=== PATIENT | male | born 1955 | race Caucasian/White ===

== ENCOUNTER → 2017-05-08 06:46 | Outpatient (CLI) | payer OTHER, SELFPAY ==
--- NOTE | 2017-05-09 08:40 | STRESSREP ---
Stress Test Report Exercise myocardial perfusion stress test. 62-year-old man with a history of dilated cardiomyopathy. Medications Norvasc Toprol Glucophage Prinivil Stress Protocol: Resting EKG demonstrates normal sinus rhythm with a rate of 76 bpm. Resting blood pressure is 130/88 mmHg. She and exercised according to the Zaid protocol for total duration of 5 minutes and 12 seconds. The maximum heart rate attained was 157 bpm which was 98% of the maximum predicted heart rate. The maximum workload attained was 7 metabolic equivalents. At rest there were no ST or T-wave changes noted suggest ischemia. Occasional premature ventricular complexes were noted test was terminated due to leg fatigue. Myocardial perfusion protocol 14.6 mCi of technetium 99m sestamibi was injected at rest. Patient then exercised for 5 minutes and 12 seconds attaining a maximum workload of 7 metabolic equivalents. And 98% of the maximum predicted heart rate. At peak exercise 44.9 mCi of technetium 99m sestamibi was injected. Stress and rest images were reconstructed and compared in the short axis vertical long horizontal long axis. Gated images were also obtained. Perfusion SPECT analysis. Of the stress images demonstrate normal perfusion in all areas of the myocardium. The resting images similarly demonstrate normal perfusion in all areas of the myocardium. No areas of reversibility are noted suggest ischemia. No previous infarct is noted. Gated SPECT analysis. Gated ejection fraction is 53%. Conclusion: Normal exercise myocardial perfusion stress test at a moderate workload. Preserved ejection fraction.
== END ==
PROVIDERS: Family Provider Family Medicine; PCP Family Medicine; Visit Provider Internal Medicine Cardiovascular Disease
DX: I42.0 Dilated cardiomyopathy (principal)
CPT/HCPCS: 78452; 93017; A9500; A4216

== ENCOUNTER → 2019-08-27 14:51 | Outpatient (CLI) | payer OTHER, SELFPAY ==
[2019-07-27 12:43] VITALS: BMI 31.3
--- NOTE | 2019-08-27 14:57 | ECHOD_ITS ---
Reason For Study: DYSPNEA/SOB Procedure This was a 2D Doppler, Color Flow transthoracic echocardiogram. The exam was of adequate technical quality. Exam performed in department. Left Ventricle Moderately dilated left ventricle. Severe global left ventricular systolic dysfunction. The estimated ejection fraction is 25 %. No evidence for diastolic dysfunction. Right Ventricle Normal RV size. Normal systolic function. Atria The left atrium is mildly enlarged. Normal right atrium. No doppler evidence for ASD. Mitral Valve There is no mitral annular calcification. Normal mitral valve. Trivial mitral valve insufficiency. Tricuspid Valve Normal tricuspid valve. Trivial tricuspid valve insufficiency. Right ventricular systolic pressure estimated to be 24 mmHg. Aortic Valve Trisinus/trileaflet aortic valve. Normal aortic valve. Pulmonic Valve The pulmonic valve is not well visualized. Great Vessels Normal sized aortic root. Pericardium/Pleural No pericardial effusion. MMode/2D Measurements & Calculations LVIDd: 6.4 cm IVSd: 1.1 cm Ao root diam: 2.8 cm LVIDs: 5.1 cm LVPWd: 1.1 cm RVDd: 3.1 cm FS: 20.2 % LAV(MOD-bp): 52.0 ml LA A4 area: 17.1 cm2 LA dimension(2D): 4.0 cm LAV(MOD-bp) Indexed: 24.5 ml/m2 LAV(MOD-sp2): 54.4 ml LAV(MOD-sp4): 49.7 ml RA A4 area: 13.1 cm2 Time Measurements MV dec time: 0.20 sec Doppler Measurements & Calculations MV E max jethro: 56.6 cm/sec Lat Peak E' Jethro: 6.4 cm/sec Med Peak E' Jethro: 5.9 cm/sec MV A max jethro: 84.0 cm/sec E/E' lat: 8.9 E/E' med: 9.5 MV E/A: 0.67 Ao V2 max: 116.4 cm/sec LV V1 max: 66.7 cm/sec PA V2 max: 81.5 cm/sec Ao max P.4 mmHg LV V1 max P.8 mmHg Ao V2 mean: 86.7 cm/sec LV V1 mean P.1 mmHg Ao mean P.2 mmHg LV V1 mean: 50.4 cm/sec Ao V2 VTI: 21.0 cm LV V1 VTI: 13.3 cm TR max jethro: 229.5 cm/sec TR max P.1 mmHg Interpretation Summary Severe global left ventricular systolic dysfunction. The estimated ejection fraction is 25 %. The left atrium is mildly enlarged. Trivial mitral valve insufficiency. Trivial tricuspid valve insufficiency. Right ventricular systolic pressure estimated to be 24 mmHg. No evidence for diastolic dysfunction. Ordering Physician: Sourav Godinez Referring Physician: Yvette Warren Performed By: Dawn Yo, FIONA, RVT
== END ==
PROVIDERS: PCP Family Medicine; Referring Provider Internal Medicine Cardiovascular Disease; Visit Provider Internal Medicine Cardiovascular Disease
DX: R06.02 Shortness of breath (principal); R06.00 Dyspnea, unspecified; I42.0 Dilated cardiomyopathy; I25.10 Atherosclerotic heart disease of native coronary artery without angina pectoris; E78.2 Mixed hyperlipidemia; E11.9 Type 2 diabetes mellitus without complications; N18.1 Chronic kidney disease, stage 1; I12.9 Hypertensive chronic kidney disease with stage 1 through stage 4 chronic kidney disease, or unspecified chronic kidney disease
CPT/HCPCS: 93306

== ENCOUNTER → 2019-12-09 16:41 | Outpatient (CLI) | payer OTHER, SELFPAY ==
[2019-12-09 16:31] VITALS: BMI 31.1
[2019-12-09 17:25] LABS: Anion Gap 4 (5-15); BNP,B-Type NATRIURETIC PEPTIDE 33.8 pg/mL (0-100); BUN 20 mg/dL (7-18); BUN/Creat Ratio 14.6 RATIO (10-20); Calcium,Total 9.9 mg/dL (8.5-10.1); Chloride 104 mmol/L (98-107); Creatinine, Serum 1.37 mg/dL (0.70-1.30); EST Glomerular Filtration Rate 56 mL/min (>60); Est Glom Filt Rate - Afr Amer 68 mL/min (>60); Glucose 173 mg/dL (74-106); Potassium 3.9 mmol/L (3.5-5.1); Sodium Level 137 mmol/L (136-145)
== END ==
PROVIDERS: PCP Family Medicine; Referring Provider Nurse Practitioner Family; Visit Provider Nurse Practitioner Family
DX: I25.10 Atherosclerotic heart disease of native coronary artery without angina pectoris (principal); I42.0 Dilated cardiomyopathy; I12.9 Hypertensive chronic kidney disease with stage 1 through stage 4 chronic kidney disease, or unspecified chronic kidney disease; N18.1 Chronic kidney disease, stage 1; E11.9 Type 2 diabetes mellitus without complications; R06.00 Dyspnea, unspecified
CPT/HCPCS: 36415; 80048; 83880

== ENCOUNTER 2020-04-10 11:40 | Inpatient (IN) | payer OTHER, SELFPAY ==
[2019-12-09 16:31] VITALS: BMI 31.1
[2020-04-10] VITALS (10 sets, daily range): BP systolic 125–143; BP diastolic 82–88; PULSE 67–81; RESP 15–20; TEMP 27.2–36.8; O2SAT 93–97; BMI 32.7; BMI 30.2
--- NOTE | 2020-04-10 11:43 | NURSING ---
NO OLD EKGS
--- NOTE | 2020-04-10 11:50 | NURSING ---
NO OLD EKGS
--- NOTE | 2020-04-10 11:51 | ED.RN ---
PT POOR HISTORIAN CALL FOR INFO AND UPDATE, MAGDA WILSON [phone]
--- NOTE | 2020-04-10 11:56 | ED.RN ---
PT'S REPORTS IF HE HAS TO HAVE A HEART CATH DONE I ONLY WANT DR. JOSEPH TO DO IT
--- NOTE | 2020-04-10 12:14 | EKG12_ITS ---
Test Reason : Blood Pressure : / mmHG Vent. Rate : 071 BPM Atrial Rate : 071 BPM P-R Int : 142 ms QRS Dur : 116 ms QT Int : 424 ms P-R-T Axes : 047 006 083 degrees QTc Int : 460 ms Normal sinus rhythm Nonspecific ST and T wave abnormality Prolonged QT Abnormal ECG No previous ECGs available Confirmed by JAKE KENDRICK, ELAYNE ([id number]), make up editor JENA MOSCOSO ([id number]) on 04/13/2020 11:58:27 AM Referred By: MADHU Confirmed By:LYDIA JOSEPH MD
--- NOTE | 2020-04-10 12:15 | RAD_ITS ---
STUDY: X-RAY CHEST REASON FOR EXAM: Male, 65 years old. INTERMITTENT CHEST PAIN TECHNIQUE: Single AP portable view of the chest. COMPARISON: None. FINDINGS: The lungs are clear and expanded. There is no demonstrated pleural abnormality. Normal size heart. Normal mediastinum and corinne. Normal visualized pulmonary arteries. Normal visualized aortic arch and descending thoracic aorta. There are diffuse degenerative changes of the visualized thoracic spine. There is degenerative osteoarthritis of the bilateral shoulders. There is no demonstrated abnormality of the visualized soft tissue structures of the upper abdomen. RAD/Chest 1 View (Portable) IMPRESSION: Degenerative changes, as described above. No demonstrated acute cardiopulmonary process.. Electronically Signed: Kobi Blanco, at 13:20 EST Tel , Service support ,
[2020-04-10 12:22] LABS: Absolute Lymphocyte Count 1.51 X10^3/uL (0.83-4.51); Absolute Neutrophil Count 5.1 X10^3/uL (2.0-7.7); Basophil# 0.09 X10^3/uL; Basophil% 1.1 % (0-1); Eosinophil# 0.61 X10^3/uL; Eosinophils% 7.4 % (0-5); Hematocrit 48.5 % (40-54); Hemoglobin 16.2 g/dL (13.0-16.5); Lymphocyte # 1.51 X10^3/ul (4.0); Lymphocyte % 18.3 % (19-41); Mean Corp Hgb Conc 33.4 g/dL (32-36); Mean Corpuscular Hgb 31.3 pg (27.0-32.0); Mean Corpuscular Volume 93.6 fL (80-94); Mean Platelet Vol. 9.8 fl (6.2-12.0); Monocyte# 0.88 X10^3/uL; Monocyte% 10.7 % (0-10); NRBC Flagged by Analyzer 0 % (0-5); Neutrophil # 5.13 X10^3/uL (2.7-7.7); Neutrophil % 62.1 % (47-70); Platelet Count 394 K/mm3 (150-450); RBC Distribution Width CV 12.9 % (11.6-14.6); Red Blood Count 5.18 M/mm3 (4.6-6.2); White Blood Count 8.3 K/mm3 (4.4-11.0)
[2020-04-10 12:33] LABS: International Normalized Ratio 0.9
[2020-04-10 12:43] LABS: Anion Gap 7 (5-15); BUN 19 mg/dL (7-18); BUN/Creat Ratio 12.3 RATIO (10-20); Calcium,Total 9.6 mg/dL (8.5-10.1); Chloride 103 mmol/L (98-107); Creatinine, Serum 1.55 mg/dL (0.70-1.30); EST Glomerular Filtration Rate 48 mL/min (>60); Est Glom Filt Rate - Afr Amer 59 mL/min (>60); Estimated Creatinine Clearance 48.78 ml/min; Glucose 339 mg/dL (74-106); Sodium Level 137 mmol/L (136-145)
[2020-04-10 12:53] LABS: D-Dimer Quantitative (DVT/PE) 0.36 FEU/ug/m (0.27-0.49)
--- NOTE | 2020-04-10 13:07 | ED.DCSUM_ITS ---
History of Present Illness Chief Complaint: Chest Pain Informant: Patient Onset: Days - 4 days Timing: Intermittent Current Severity: Mild Maximum Severity: Moderate Narrative: Patient presents secondary to increased shortness of breath. Patient reports increased shortness of breath over the past 3 or 4 days. He states he occasionally will feel some slight heaviness on his chest. He does have a history of cardiomyopathy with ejection fraction at last check of 25%. On review of records it appears the patient's last heart cath was in 2011. He had a stress test in 2018. - Past Medical History (1) Sleep apnea Status: Chronic (2) Asthma Status: Chronic (3) Atherosclerotic heart disease of [place] coronary artery without angina pectoris Status: Chronic Comment: Mild disease LAD per cath 06/12/11 (4) CKD (chronic kidney disease) stage 1, GFR 90 ml/min or greater Status: Chronic (5) Dilated cardiomyopathy Status: Chronic (6) Essential hypertension Status: Chronic (7) Mixed hyperlipidemia Status: Chronic (8) Type 2 diabetes mellitus Status: Chronic Past Medical History - Allergies and Home Meds Allergies/Adverse Reactions: Allergies No Known Allergies Allergy (Verified 04/10/20 11:41) Prior records reviewed: Yes Lives: Spouse/ Significant Other Smoking Status: Former smoker - Family History Sibling Family History: Family History (Last Reviewed 12/09/19 @ 16:06 by Mejia Antony NP, [employer]CI[employer]-C) Father Myocardial infarction Hypertension CVA (cerebral vascular accident) Brother Myocardial infarction CVA (cerebral vascular accident) Mixed hyperlipidemia Family History: Reports: Heart Disease Review of Systems General: Denies: Chills, Fever Eyes: Denies: Visual changes - bilaterally ENT: Denies: Bilateral ear pain Cardiovascular: Reports: Chest pain Respiratory: Reports: Dyspnea. Denies: Cough Gastrointestinal: Denies: Abdominal pain, Nausea, Vomiting, Diarrhea Musculoskeletal: Denies: Extremity Pain Skin: Denies: Rash Hematologic: Denies: Easy bruising, Easy bleeding Allergy: Denies: Uticaria Physical Exam Vital Signs/Narrative: Vital Signs Temp Pulse Resp BP Pulse Ox 04/10/20 11:46 81 20 H 138/85 H 93 04/10/20 11:41 81 F L 81 17 138/85 H 93 Inital Vital Signs reviewed: Yes General: Well nourished, Well developed Head: Normocephalic ENT: Moist mucous membranes Neck: Supple Cardiovascular: Regular rate, Regular rhythm Respiratory: No distress, CTA bilaterally, Chest nontender Abdomen: Soft, Nontender Extremities: Nontender Skin: Normal color Neurological: Alert, Oriented x3 Psychological: Normal affect Diagnostic/Tx/Re-eval Chest X-Ray - ED: 1 View, Read by ED Physician, Chronic Changes Impressions Chest X-Ray 04/10/20 12:15 IMPRESSION: Degenerative changes, as described above. No demonstrated acute cardiopulmonary process.. Electronically Signed: Kobi Blanco, at 13:20 EST Tel , Service support , 04/10/20 12:15 Chest 1 View (Portable) [RAD] Stat 04/10/20 12:35 Mucosa - Nasopharyngeal SARS-CoV-2 Antigen (Rapid) - Final Laboratory Results 04/10/20 04/10/20 04/10/20 12:15 12:15 12:15 WBC 8.3 RBC 5.18 Hgb 16.2 Hct 48.5 MCV 93.6 MCH 31.3 MCHC 33.4 RDW Std Deviation 44.0 H RDW Coeff of Any 12.9 Plt Count 394 MPV 9.8 Immature Gran % (Auto) 0.400 Neut % (Auto) 62.1 Lymph % (Auto) 18.3 L [place] % (Auto) 10.7 H Eos % (Auto) 7.4 H Baso % (Auto) 1.1 H Absolute Neuts (auto) 5.1 Absolute Lymphs (auto) 1.51 Nucleated RBC % 0 PT 12.0 INR 0.9 D-Dimer Quant (PE/DVT) Sodium 137 Potassium 4.0 Chloride 103 Carbon Dioxide 27.0 Anion Gap 7 BUN 19 H Creatinine 1.55 H Estim Creat Clear Calc 48.78 Est GFR (MDRD) Af Amer 59 L Est GFR (MDRD) Non-Af 48 L BUN/Creatinine Ratio 12.3 Glucose 339 H Calcium 9.6 Troponin I 0.789 H* 04/10/20 12:15 WBC RBC Hgb Hct MCV MCH MCHC RDW Std Deviation RDW Coeff of Any Plt Count MPV Immature Gran % (Auto) Neut % (Auto) Lymph % (Auto) [place] % (Auto) Eos % (Auto) Baso % (Auto) Absolute Neuts (auto) Absolute Lymphs (auto) Nucleated RBC % PT INR D-Dimer Quant (PE/DVT) 0.36 Sodium Potassium Chloride Carbon Dioxide Anion Gap BUN Creatinine Estim Creat Clear Calc Est GFR (MDRD) Af Amer Est GFR (MDRD) Non-Af BUN/Creatinine Ratio Glucose Calcium Troponin I - EKG Initial EKG Interpretation: Sinus Rhythm - Sinus at 79. He may have 1/[address] depression in the lateral precordial leads. No prior studies available for comparison. - Medical Decision Making Patient was given aspirin on arrival. Blood work does return with a troponin elevated at 0.789. BNP is pending at this time but his chest x-ray does not appear wet. I did speak Dr. Cedeno, on-call for cardiology. He requested the patient be placed on a heparin drip. This will be started and I will speak with hospitalist regarding admission for NSTEMI. - Critical Care Time Critical care time (excluding procedures): 30-74 minutes ED Disposition - Plan for ED Patient: Disposition: Acute Care Hospital [facility] Diagnosis: NSTEMI (non-ST elevated myocardial infarction)
--- NOTE | 2020-04-10 13:07 | NURSING ---
Dr. Barajas made aware of critical trop
[2020-04-10] MEDS: Aspirin 81 MG TAB.CHEW 243 MG PO (13:24)
[2020-04-10] MEDS: HEPARIN/D5w 25,000 UNITS 25,000 UNITS/250 ML IV.SOLN. 14 UNITS IV (14:10)
[2020-04-10] MEDS: Heparin Injection (Vial) 5,000 UNIT/ML VIAL 7500 UNIT IV (14:10)
[2020-04-10 14:14] LABS: Partial Thromboplast Time 28.2 Seconds (24.1-36.2)
--- NOTE | 2020-04-10 14:40 | EKG12_ITS ---
Test Reason : SOB CP Blood Pressure : / mmHG Vent. Rate : 079 BPM Atrial Rate : 079 BPM P-R Int : 142 ms QRS Dur : 110 ms QT Int : 400 ms P-R-T Axes : 048 008 090 degrees QTc Int : 458 ms Normal sinus rhythm Nonspecific ST and T wave abnormality Abnormal ECG Confirmed by JAKE KENDRICK, ELAYNE ([id number]), photography editor JENA MOSCOSO ([id number]) on 04/17/2020 9:11:33 AM Referred By: LENORE Confirmed By:LYDIA JOSEPH MD
--- NOTE | 2020-04-10 14:55 | PCM.HP.STD ---
Problem List (1) BPH (benign prostatic hyperplasia) Status: Chronic (2) NSTEMI (non-ST elevated myocardial infarction) Status: Acute (3) Dilated cardiomyopathy Status: Chronic (4) Atherosclerotic heart disease of [place] coronary artery without angina pectoris Status: Chronic Qualifiers: [place] vs. transplanted heart: [place] heart Qualified Code(s): I25.10 - Atherosclerotic heart disease of [place] coronary artery without angina pectoris Comment: Mild disease LAD per cath 06/12/11 (5) Asthma Status: Chronic (6) Sleep apnea Status: Chronic (7) Cardiomyopathy Status: Acute Qualifiers: Cardiomyopathy type: dilated Qualified Code(s): I42.0 - Dilated cardiomyopathy (8) CKD (chronic kidney disease) stage 1, GFR 90 ml/min or greater Status: Chronic (9) Type 2 diabetes mellitus Status: Chronic (10) Essential hypertension Status: Chronic (11) Mixed hyperlipidemia Status: Chronic (12) ROLAND (acute kidney injury) Status: Acute History of Present Illness Date of Admission: 04/10/20 Mr Sanders is a 65 year old M with a PMH of a NICM, HTN, HPL, DM-2, CKD stage 1-2, Asthma, RON, BPH, and obesity who presented to the ED on 04/10/2020 with worsening SOB and chest squeezing. He states that he has noticed his worsening SOB over the last week or so and this is worse with exertion and better with rest. He states that he was doing a lot of stair climbing over the weekend with the taking down of [place] decorations and noted that his SOB was more severe and that he had some chest squeezing'. He had also been noting some mid back pain that he attributed to his chronic back issues. He experienced on diaphoresis or nausea or vomiting in conjunction with his sx. He states that he had a LHC in about 2011 when he was diagnosed with a cardiomyopathy and there were no blockages at that time and his CM was attibuted to a viral infection. He did have a stress test in 05/12/2017 that showed normal exercise perfusion with a moderate workload and and EF of 53%. He states that his EF had been 45% when diagnosed with viral myocarditis. He had an ECHO here in 08/2019 that showed and EF of 25% (severe global dysfunction) with mild LAE and was seen by Dr. Godinez's SENIOR GRANT WRITER in 11/2019. He does have a family h/o cardiac issues and the pt deferred ICD placement at that time. Past Medical History Past Medical History (Chronic Problems): Chronic Problems (Last Reviewed 12/09/19 @ 16:06 by Mejia Antony NP, SENIOR [employer] WRITER-C) BPH (benign prostatic hyperplasia) (Chronic) Dilated cardiomyopathy (Chronic) Atherosclerotic heart disease of [place] coronary artery without angina pectoris (Chronic) Mild disease LAD per cath 06/12/11 Asthma (Chronic) Sleep apnea (Chronic) CKD (chronic kidney disease) stage 1, GFR 90 ml/min or greater (Chronic) Type 2 diabetes mellitus (Chronic) Essential hypertension (Chronic) Mixed hyperlipidemia (Chronic) Medical History: Medical History (Last Reviewed 04/10/20 @ 15:[address] Milka Gross, DO) Dilated cardiomyopathy (Chronic) I42.0 Atherosclerotic heart disease of [place] coronary artery without angina pectoris (Chronic) I25.10 Mild disease LAD per cath 06/12/11 Asthma (Chronic) J45.909 Sleep apnea (Chronic) G47.30 Cardiomyopathy (Acute) I42.9 CKD (chronic kidney disease) stage 1, GFR 90 ml/min or greater (Chronic) N18.1 Type 2 diabetes mellitus (Chronic) E11.9 Essential hypertension (Chronic) I10 Mixed hyperlipidemia (Chronic) E78.2 Allergies No Known Allergies Allergy (Verified 04/10/20 11:41) Home Medications: Ambulatory Orders Medication Instructions Recorded Albuterol Inhaler [Ventolin Hfa] 1 - 2 puff INHALATION Q4H PRN PRN 05/24/13 Simvastatin [Zocor] 40 mg PO QHS 05/24/13 amlodipine 10 mg tablet 10 mg PO DAILY 07/26/19 budesonide-formoterol HFA 160 2 puff INHALATION BID 07/26/19 mcg-4.5 mcg/actuation aerosol inhaler dulaglutide 0.75 mg/0.5 mL 0.75 mg SC QWEEK 07/26/19 subcutaneous pen injector glipizide 10 mg tablet, extended 10 mg PO DAILY 07/26/19 release 24 hr lisinopril 40 mg tablet 40 mg PO DAILY 07/26/19 metformin 500 mg tablet 1,000 mg PO DAILY tab 07/26/19 sitagliptin 100 mg tablet 100 mg PO DAILY 07/26/19 cholecalciferol (vitamin D3) 125 125 mcg PO DAILY 09/10/19 mcg (5,000 unit) capsule aspirin 81 mg chewable tablet 81 mg PO DAILY 12/09/19 metoprolol succinate 100 mg 200 mg PO DAILY tab 12/10/19 tablet,extended release 24 hr Hydrochlorothiazide [Hctz] 25 mg PO DAILY 04/10/20 Montelukast Sodium [Singulair] 10 mg PO DAILY 04/10/20 Mv-Min/Folic/Vit K/Lut/Dhsx808 1 tab PO DAILY 04/10/20 [Alive Women's 50 Plus Tablet] Naproxen Sodium [Aleve] 220 mg PO DAILY PRN PRN 04/10/20 Surgical History: Surgical History (Last Reviewed 04/10/20 @ 15:[address] Milka Gross, DO) History of cholecystectomy Z90.49 History of hernia repair Z98.890, Z87.19 History of laminectomy Z98.890 Cervical History of left heart catheterization (LHC) Onset Date: ~06/12/11 Z98.890 Mild disease LAD per cath 06/12/11 History of rotator cuff surgery Z98.890 History of tonsillectomy Z90.89 Surgical History: noncontributory Psychiatric History: No pertinent psych hx Lives: Spouse/ Significant Other Smoking Status: Former smoker - quit 1989 Tobacco Use: Non-smoker Alcohol: Rare Drugs: None - *Family History Sibling Family History: Family History (Last Reviewed 12/09/19 @ 16:06 by Mejia Antony SENIOR GRANT WRITER, SENIOR GRANT WRITER-C) Father Myocardial infarction Hypertension CVA (cerebral vascular accident) Brother Myocardial infarction CVA (cerebral vascular accident) Mixed hyperlipidemia History Items: Heart Disease Review of Systems Constitutional: Reports: Fatigue. Denies: Anorexia, Chills, Fever, Night Sweats, Malaise, Weakness, Weight Change Eyes: Denies: Blurred vision, Double vision, Drainage, Eyelid Inflammation, Pain, Redness, Vision Change HEENT: Denies: Difficulty Hearing, Difficulty Swallowing, Head Aches, Nasal Congestion, Post Nasal Drip, Sinus Congestion, Sinus Drainage, Sore Throat, Visual Changes Cardiovascular: Reports: Chest Pressure, Chest Tightness. Denies: Chest Pain, Claudication, Edema, Heaviness, Light Headedness, Orthopnea, Palpitations, Paroxysmal Noc. Dyspnea, Syncope Respiratory: Reports: Shortness of Breath, Shortness of breath upon exertion. Denies: Cough, Hemoptysis, Pleuritic Pain, Shortness of breath at rest, Sputum production, Wheezing Gastrointestinal: Denies: Abdominal Pain, Constipation, Diarrhea, Dyspepsia, Hematemesis, Hematochezia, Nausea, Melena, Vomiting Genitourinary: Reports: Frequency, Hesitancy, Nocturia, Retention. Denies: Dysuria, Hematuria, Incontinence, Urgency Musculoskeletal: Reports: Back Pain. Denies: Joint Pain, Joint stiffness, Joint swelling, Joint Tenderness, Neck Pain, Shoulder Pain Skin: Denies: Dryness, Jaundice, Lesions, Pruritis, Rash, Skin Changes, Wounds Neurological: Denies: Balance problems, Blurred vision, Double vision, Change in Speech, Slurred speech, Confusion, Difficulty swallowing, Focal weakness, Headaches, Incoordination, Numbness, Tingling, Tremor, Seizures Psychiatric: Denies: Anxiety, Depression Endocrine: Denies: Change in Body Habitus, Polyuria Hematologic/ Lymphatic: Denies: Adenopathy, Anemia, Easy Bruising, Easy Bleeding, Petechiae, Purpura VTE Information - Inpt Only VTE Present on Admission: No VTE Mechan Device Prophylaxis: None VTE Pharm Prophylaxis ordered?: Yes Patient Problems: Active and Suspected Problems (Last Reviewed 12/09/19 @ 16:06 by Mejia Antony SENIOR GRANT WRITER, SENIOR GRANT WRITER-C) NSTEMI (non-ST elevated myocardial infarction) (Acute) - Physical Exam Vitals/I&O's: Vital Signs Temp Pulse Resp BP Pulse Ox 97.0 F L 72 15 125/83 H 96 04/10/20 14:15 04/10/20 14:15 04/10/20 14:15 04/10/20 14:15 04/10/20 14:15 Oxygen Delivery Method Room Air Weight: 100.5 kg Body Mass Index (BMI) 32.7 General: Alert, Oriented x3, Cooperative, No apparent distress, Well developed, Well nourished, - - upper middle aged WM lying in bed, nsg at bedside, pt appears comfortable HEENT: Atraumatic, PERRLA, EOMI, Normocephalic, EAC Clear Oral: Moist Mucosa, No Gingival or Mucosal Lesions/ Ulcerations, - - dentures in place Neck: Supple, No JVD, Negative Carotid Bruits, Negative Hepatojugular Reflux, No Nodes, No Nuchal Rigidity, Trachea Midline, Thyroid Normal Size and Texture Lungs: Clear to auscultation, Normal air movement, No rhonchi, No wheeze, No rales Cardiovascular: Regular rate, Regular Rhythm, Normal S1, Normal S2, No murmurs, No Ectopic Activity, No rub noted, No Gallop Abdomen: Bowel Sounds Present, Soft, Non Tender, Non-Distended, No Hepato-splenomegaly, Obese, No hernias noted Extremities: No clubbing, No cyanosis, Capillary Refill Less than 3 Seconds, Peripheral Pulses Normal Skin: No rashes, No breakdown Musculoskeletal: No Tenderness to Palpation of Joints or Extremities, No Muscle Wasting Lymphatic: No Cervical, Supraclavicular, or Inguinal Adenopathy Neurological: Cranial nerves II-XII grossly intact, Deep Tendon Reflexes 2+/4 and Symmetrical, Neuro grossly intact, Motor Exam 5/5 strength throughout, Muscle tone normal, Coordination normal Psych/Mental Status: Normal Affect, Appropriate Microbiology Past 72 Hours 04/10/20 12:35 Mucosa - Nasopharyngeal SARS-CoV-2 Antigen (Rapid) - Final Laboratory Results 04/10/20 12:15: WBC 8.3, RBC 5.18, Hgb 16.2, Hct 48.5, MCV 93.6, MCH 31.3, MCHC 33.4, RDW Std Deviation 44.0 H, RDW Coeff of Any 12.9, Plt Count 394, MPV 9.8, Immature Gran % (Auto) 0.400, Neut % (Auto) 62.1, Lymph % (Auto) 18.3 L, [place] % (Auto) 10.7 H, Eos % (Auto) 7.4 H, Baso % (Auto) 1.1 H, Absolute Neuts (auto) 5.1, Absolute Lymphs (auto) 1.51, Nucleated RBC % 0 04/10/20 12:15: PT 12.0, INR 0.9 04/10/20 12:15: Sodium 137, Potassium 4.0, Chloride 103, Carbon Dioxide 27.0, Anion Gap 7, BUN 19 H, Creatinine 1.55 H, Estim Creat Clear Calc 48.78, Est GFR (MDRD) Af Amer 59 L, Est GFR (MDRD) Non-Af 48 L, BUN/Creatinine Ratio 12.3, Glucose 339 H, Calcium 9.6, Troponin I 0.789 H* 04/10/20 12:15: D-Dimer Quant (PE/DVT) 0.36 04/10/20 12:15: B-Natriuretic Peptide Pending 04/10/20 12:15: APTT 28.2 Current Medications Acetaminophen (Acetaminophen 325 Mg Tablet) 650 mg PO Q6H PRN PRN PRN Reason: Pain Score 1-10/Temp > 100.7 F Al Hydroxide/Mg Hydroxide (Mag Hydrox/Al Hydrox/Simeth 30 Ml Udc) 30 ml PO Q6H PRN PRN PRN Reason: Gastric Burning Albuterol Sulfate (Albuterol 2.5 Mg/3 Ml Vial.Neb.) 2.5 mg INHALATION Q2H PRN PRN PRN Reason: SOB/Wheezing Amlodipine Besylate (Amlodipine 10 Mg Tablet) 10 mg PO DAILY [facility] Aspirin (Aspirin E.C. 81 Mg Tablet) 81 mg PO DAILY@0800 [facility] Cyclobenzaprine HCl (Cyclobenzaprine Hcl 10 Mg Tablet) 10 mg PO TID PRN PRN Reason: muscle spasm Docusate Sodium (Docusate Sodium 100 Mg Capsule) 100 mg PO BID PRN PRN PRN Reason: Constipation Heparin Sodium (Porcine) (Heparin Injection (Vial) 5,000 Unit/Ml Vial) 0 unit IV UD PRN; Protocol PRN Reason: dose adjustment Hydralazine HCl (Hydralazine 20 Mg/Ml Vial) 10 mg IV Q6H PRN PRN PRN Reason: Sbp Greater Than 160 Heparin Sodium/Dextrose () 25,000 units in 250 mls @ 14 mls/hr IV .[id number] [facility]; Protocol Last Admin: 04/10/20 14:10 Dose: 1,400 units/hr, 14 mls/hr Documented by: Sodium Chloride () 1,000 mls @ 70 mls/hr IV .[id number] [facility] Insulin Glargine (Insulin Glargine 100 Units/Ml Pen) 20 units SC QHS [facility] Insulin Human Lispro (Insulin Lispro 100 Unit/Ml Insuln.Pen) 8 unit SC Q6 [facility] Insulin Human Lispro (Insulin Lispro 100 Unit/Ml Insuln.Pen) 0 unit SC TIDAC [facility]; Protocol Lisinopril (Lisinopril 40 Mg Tablet) 40 mg PO DAILY [facility] Melatonin (Melatonin 3 Mg Tablet) 3 mg PO QHS PRN PRN PRN Reason: INSOMNIA Metoprolol Succinate (Metoprolol(Xl)Succ 100 Mg Tablet) 200 mg PO DAILY [facility] Montelukast Sodium (Montelukast 10 Mg Tablet) 10 mg PO DAILY [facility] Morphine Sulfate (Morphine 2 Mg/Ml Syringe) 2 mg IV Q3H PRN PRN PRN Reason: Pain Score 6-10 Nitroglycerin (Nitroglycerin (Inpatient Use) 0.4 Mg Tab.Subl) 0.4 mg SUBLINGUAL Q5M PRN PRN Reason: CARDIAC/CHEST PAIN Non-Formulary Medication (Budesonide/Formoterol Fumarate [Budesonide-Formoterol 160-4.5]) 2 puff INHALATION BID [facility] Non-Formulary Medication (Simvastatin) 40 mg PO QHS [facility] Ondansetron HCl (Ondansetron 4 Mg/2 Ml Vial) 4 mg IV Q8H PRN PRN PRN Reason: NAUSEA/VOMITING Assessment/Plan All Active Problems (Last Reviewed 12/09/19 @ 16:06 by Mejia Antony SENIOR GRANT WRITER, SENIOR GRANT WRITER-C) NSTEMI (non-ST elevated myocardial infarction) (Acute) ROLAND (acute kidney injury) (Acute) Cardiomyopathy (Acute) NSTEMI -ED d/w Dr. Cedeno and he wanted pt placed on heparin ggt -order placed -ASA given -will await cards for Plavix load if desired -continue BB, statin, ACEI -check A1c, check lipids -NPO after MN for potential LHC -IVF ordered with elevated sCr -prn nitro/morphine -Cardiology is consulted ROLAND on CKD stage 2 -baseline is unknown but higher than last assessment today -gentle hydration with probable LHC tomorrow (LR at 70 cc/hr) -watch volume status closely with HFrEF HFrEF 2/2 NICM-compensated -EF was 25% on ECHO from 08/2019 -had neg stress test 2017 (EF was 53% on that) and neg LHC in 2011 when NICM was diagonosed -continue BB/ACEI -suspect LHC tomorrow -daily wgts and I&O DM-2 uncontrolled -Unclear what A1c is most recently -check in am -hold home meds (trulicity {last dose yesterday}, metformin, glipizide ER, januvia) -Lantus 20 u at HS, Log 8 u with meals -SSI -BGT AC and HS HTN/HPL -check lipids -continue Norvasc, lisinopril, metoprolol -hold HCTZ for now -prn hydralazine -monitor pressures Asthma -continue home meds BPH -start Flomax DVT Prophylaxis -heparin ggt Code status Full Inpatient E&M: 37005 Init Hosp L3
[2020-04-10] MEDS: 0.9% Normal Saline 1,000 ML 70 ML IV (15:35)
[2020-04-10 16:12] LABS: BNP,B-Type NATRIURETIC PEPTIDE 75.7 pg/mL (0-100)
[2020-04-10 17:40] LABS: Bedside Glucose 133 mg/dL (70-110)
[2020-04-10] MEDS: Insulin Lispro 100 UNIT/ML INSULN.PEN 8 UNIT SC (18:14)
[2020-04-10 18:21] LABS: Bedside Glucose 212 mg/dL (70-110)
[2020-04-10] MEDS: Albuterol 2.5 MG/3 ML VIAL.NEB. INHALATION (20:41)
[2020-04-10] MEDS: Budesonide Respules 0.5 MG/2 ML AMPUL.NEB. INHALATION (20:41)
[2020-04-10 21:18] LABS: Partial Thromboplast Time 114.8 Seconds (24.1-36.2)
[2020-04-10] MEDS: Atorvastatin Calcium 20 MG Tablet PO (21:26)
[2020-04-10 21:40] LABS: Bedside Glucose 163 mg/dL (70-110)
[2020-04-11] VITALS (16 sets, daily range): BP systolic 123–150; BP diastolic 79–94; PULSE 66–80; RESP 16–20; TEMP 36.2–36.6; O2SAT 92–95
[2020-04-11 00:01] LABS: Bedside Glucose 127 mg/dL (70-110)
[2020-04-11 05:07] LABS: Absolute Lymphocyte Count 3.54 X10^3/uL (0.83-4.51); Absolute Neutrophil Count 4.9 X10^3/uL (2.0-7.7); Basophil# 0.08 X10^3/uL; Basophil% 0.8 % (0-1); Eosinophils% 6.7 % (0-5); Hematocrit 42.7 % (40-54); Hemoglobin 14.3 g/dL (13.0-16.5); Lymphocyte # 3.54 X10^3/ul (4.0); Lymphocyte % 33.8 % (19-41); Mean Corp Hgb Conc 33.5 g/dL (32-36); Mean Corpuscular Volume 92.6 fL (80-94); Mean Platelet Vol. 9.5 fl (6.2-12.0); Monocyte# 1.22 X10^3/uL; Monocyte% 11.7 % (0-10); NRBC Flagged by Analyzer 0 % (0-5); Neutrophil # 4.88 X10^3/uL (2.7-7.7); Neutrophil % 46.6 % (47-70); Platelet Count 314 K/mm3 (150-450); RBC Distribution Width SD 43.8 fl (35.1-43.9); Red Blood Count 4.61 M/mm3 (4.6-6.2); White Blood Count 10.5 K/mm3 (4.4-11.0)
[2020-04-11] MEDS: 0.9% Normal Saline 1,000 ML 70 ML IV (05:15)
[2020-04-11 05:17] LABS: Partial Thromboplast Time 48.8 Seconds (24.1-36.2)
[2020-04-11] MEDS: Heparin Injection (Vial) 5,000 UNIT/ML VIAL IV (05:36)
[2020-04-11 05:49] LABS: ALB/GLOB Ratio 0.8 RATIO (0.9-2.4); AST(SGOT) 22 U/L (15-37); Alanine Aminotransfer ALT/SGPT 33 U/L (16-61); Alkaline Phosphatase 58 U/L (45-117); Anion Gap 3 (5-15); BUN 15 mg/dL (7-18); BUN/Creat Ratio 11.6 RATIO (10-20); Calcium,Total 9.1 mg/dL (8.5-10.1); Chloride 105 mmol/L (98-107); Cholesterol 183 mg/dL (200); Creatinine, Serum 1.29 mg/dL (0.70-1.30); EST Glomerular Filtration Rate 60 mL/min (>60); Est Glom Filt Rate - Afr Amer 72 mL/min (>60); Estimated Creatinine Clearance 60.52 ml/min; Globulin 3.7 g/dL (2.2-4.2); Glucose 153 mg/dL (74-106); High Density Lipoprotein 44 mg/dL; Phosphorus 2.9 mg/dL (2.5-4.9); Potassium 4.4 mmol/L (3.5-5.1); Protein, Total 6.7 g/dL (6.4-8.2); Sodium Level 138 mmol/L (136-145); Thyroid Stim Hormone (TSH) 3.03 uIU/mL (0.358-3.74); Triglycerides 408 mg/dL
--- NOTE | 2020-04-11 06:28 | EKG12_ITS ---
Test Reason : HEART CATH Blood Pressure : / mmHG Vent. Rate : 069 BPM Atrial Rate : 069 BPM P-R Int : 146 ms QRS Dur : 110 ms QT Int : 408 ms P-R-T Axes : 045 009 088 degrees QTc Int : 437 ms Normal sinus rhythm Nonspecific ST and T wave abnormality Abnormal ECG No previous ECGs available Confirmed by JAKE KENDRICK, ELAYNE ([id number]), tape editor JENA MOSCOSO ([id number]) on 04/17/2020 9:59:39 AM Referred By: MADHU Confirmed By:LYDIA JOSEPH MD
[2020-04-11] MEDS: amLODIPine 10 MG Tablet PO (06:54)
[2020-04-11] MEDS: Aspirin E.C. 81 MG Tablet PO (06:54)
[2020-04-11] MEDS: Lisinopril 40 MG Tablet PO (06:55)
[2020-04-11] MEDS: Metoprolol(XL)Succ 100 MG Tablet 200 MG PO (06:55)
[2020-04-11 07:00] LABS: Bedside Glucose 158 mg/dL (70-110)
--- NOTE | 2020-04-11 07:19 | PCS.PANDOC ---
PANDEMIC DOCUMENTATION INITIATED: Date: 04/10/20 Time: 3251
[2020-04-11] MEDS: Albuterol 2.5 MG/3 ML VIAL.NEB. INHALATION (07:21)
[2020-04-11] MEDS: Budesonide Respules 0.5 MG/2 ML AMPUL.NEB. INHALATION (07:21)
[2020-04-11 07:24] LABS: Hemoglobin A1c 7.3 % (3.8-5.6)
--- NOTE | 2020-04-11 11:32 | CASEMGMT ---
DEJON CM NOTE: Insurance review for hospitals In-network with [employer] PPO Insurance if transfer is recommended is as follows: [facility], [place], [facility], [facility], [facility], [facility], [facility]), and . Ella DIEGO RN CM
[2020-04-11] MEDS: Insulin Lispro 100 UNIT/ML INSULN.PEN SC ×2 (12:40→16:46)
[2020-04-11] MEDS: Montelukast 10 MG Tablet PO (12:40)
[2020-04-11] MEDS: Insulin Lispro 100 UNIT/ML INSULN.PEN 8 UNIT SC ×2 (12:40→16:47)
[2020-04-11 12:51] LABS: Bedside Glucose 167 mg/dL (70-110)
--- NOTE | 2020-04-11 13:01 | CL.D_ITS ---
Patient Name: RAMIRO WILSON Study Date: 04/11/2020 Performing: Katya Cedeno MD Ht: 70 inches 178 cm : 1955 Wt: 209.7 lbs 95 kg Age: 65 Gender: male BSA: 2.13 PROCEDURE(S) PERFORMED [id number] CLINICAL PROFILE AND INDICATIONS Indications: ACS <= 24 hrs Heart Failure: NYHA Class: 2, Newly Diagnosed: No, Heart Failure Type: Systolic Stress/Imaging Stress/Image Study Performed: No CAD Presentations: Non-STEMI. Symptom onset Date/Time: Time Not Available CONCLUSIONS Multivessel CAD. No significant . RECOMMENDATIONS CT surgery consult to discuss revascularization options (CABG vs multivessel PCI) DESCRIPTION OF PROCEDURE The patient arrived to the procedure lab. The risks and benefits of the procedure as well as a full d escription of our services here and current unavailability of surgical backup were fully explained to the patient and/or their significant other prior to the catheterization. The Timeout was completed, verifying the correct patient and procedure. The patient's procedural site was prepped and draped in the usual fashion. Local anesthetic was given subcutaneously to right radial region with Lidocaine 2% . Using a modified Seldinger technique, arterial access was obtained via the right radial artery, a 6 Fr sheath was inserted. Left Coronary Artery selective angiography was performed in multiple views u sing a 5 Fr. JL3.5 catheter. LV to AO pullback pressures were then recorded. Right Coronary Artery se lective angiography was then performed in multiple views using a 5 Fr. JR 4 catheter.The arterial she ath was pulled and a TR Band was applied for hemostasis-14 CC AIR CORONARY ANGIOGRAPHY DOMINANCE: Right Dominant LEFT HEART ASSESSMENT Left Ventricular Ejection Fraction: Not assessed LEFT MAIN: No significant disease noted LEFT ANTERIOR DESCENDING ARTERY: PROX LAD: 80 % Stenosis MID LAD: 90 % Stenosis DIAGONAL 1: Ostial - 50 % Stenosis CIRCUMFLEX ARTERY: MID CIRC: 95 % Stenosis OM 1: Ostial - 80 % Stenosis RAMUS: 50% ostial Stenosis RIGHT CORONARY ARTERY: Mild luminal irregularities RT PDA: Ostial - 90 % Stenosis VALVE FINDINGS: No Aortic Valve Stenosis COMPLICATIONS No Complications PROCEDURE MEDICATIONS Fentanyl 50 mcg IV Versed 1 mg IV Oxygen: 2 L/min via nasal cannula Heparin given IA 04/11/2020 11:54:13 Verapamil 2.5mg, Ntg 100mcgs, 3000 units of Heparin given IA 04/11/2020 11:54:13 SUMMARY OF HEMODYNAMIC DATA Time AIR REST ECG 11:41:08 AO 104/81 (94) SA 11:55:32 LV 123/4, 14 12:02:46 LV 129/2, 14 12:02:53 LVp 138/5, 16 12:03:13 AOp 134/78 (103) 12:03:19 Signed By Katya Cedeno MD On 04/11/2020 13:00:37 Katya Cedeno MD
--- NOTE | 2020-04-11 15:16 | DCINST_ITS ---
- Discharge Diagnoses Current Active Problems: Current Active and Chronic Problems (Last Reviewed 04/10/20 @ 15:[address] Milka Gross, DO) NSTEMI (non-ST elevated myocardial infarction) (Acute) BPH (benign prostatic hyperplasia) (Chronic) ROLAND (acute kidney injury) (Acute) Dilated cardiomyopathy (Chronic) Atherosclerotic heart disease of [place] coronary artery without angina pectoris (Chronic) Mild disease LAD per cath 06/12/11 Asthma (Chronic) Sleep apnea (Chronic) Cardiomyopathy (Acute) CKD (chronic kidney disease) stage 1, GFR 90 ml/min or greater (Chronic) Type 2 diabetes mellitus (Chronic) Essential hypertension (Chronic) Mixed hyperlipidemia (Chronic) You will use the following diet at home:: Cardiac Your food should be the consistency of: Regular Your liquids should be the consistency of: Regular/Thin Discharge Activity: - - as directed by receiving facility Allergies/Adverse Reactions: Allergies No Known Allergies Allergy (Verified 04/10/20 11:41) Medications to take at Discharge Albuterol Inhaler [Ventolin Hfa] 1 - 2 puff INHALATION Q4H PRN PRN 05/24/13 Simvastatin [Zocor] 40 mg PO QHS 05/24/13 amlodipine 10 mg tablet 10 mg PO DAILY 07/26/19 budesonide-formoterol HFA 160 mcg-4.5 mcg/actuation aerosol inhaler 2 puff INHALATION BID 07/26/19 dulaglutide 0.75 mg/0.5 mL subcutaneous pen injector 0.75 mg SC QWEEK 07/26/19 glipizide 10 mg tablet, extended release 24 hr 10 mg PO DAILY 07/26/19 lisinopril 40 mg tablet 40 mg PO DAILY 07/26/19 metformin 500 mg tablet 1,000 mg PO DAILY tab 07/26/19 sitagliptin 100 mg tablet 100 mg PO DAILY 07/26/19 cholecalciferol (vitamin D3) 125 mcg (5,000 unit) capsule 125 mcg PO DAILY 09/10/19 aspirin 81 mg chewable tablet 81 mg PO DAILY 12/09/19 metoprolol succinate 100 mg tablet,extended release 24 hr 200 mg PO DAILY tab 12/10/19 Hydrochlorothiazide [Hctz] 25 mg PO DAILY 04/10/20 Montelukast Sodium [Singulair] 10 mg PO DAILY 04/10/20 Mv-Min/Folic/Vit K/Lut/[id number] [Alive Women's 50 Plus Tablet] 1 tab PO DAILY 04/10/20 Naproxen Sodium [Aleve] 220 mg PO DAILY PRN PRN 04/10/20 Primary Care Physician: Aleida Ocampo DO [Primary Care Provider] - Please follow up with your Primary Care Physician in: follow up care as directed by receiving facility Test Results: Test results from this visit will be discussed in further detail at your follow- up appointment, if applicable. Proposed Discharge Date: 04/11/20
--- NOTE | 2020-04-11 15:17 | PCM.DC.SUM ---
Discharge Date and Diagnosis - Problem List Patient Problems: Active and Suspected Problems (Last Reviewed 04/10/20 @ 15:[address] Milka Gross DO) NSTEMI (non-ST elevated myocardial infarction) (Acute) ROLAND (acute kidney injury) (Acute) Cardiomyopathy (Acute) Date of Admission: 04/10/20 Date of Discharge: 04/11/20 - Primary Discharge Diagnosis Acute Problems: Active Problems (Last Reviewed 04/10/20 @ 15:[address] Milka Gross DO) NSTEMI (non-ST elevated myocardial infarction) (Acute) Multivessel CAD ROLAND (acute kidney injury) (Acute) DMt2 HTN HLD - Secondary Discharge Diagnosis Chronic Problems: Chronic Problems (Last Reviewed 04/10/20 @ 15:[address] Milka Gross DO) BPH (benign prostatic hyperplasia) (Chronic) Dilated cardiomyopathy (Chronic) Atherosclerotic heart disease of [place] coronary artery without angina pectoris (Chronic) Mild disease LAD per cath 06/12/11 Asthma (Chronic) Sleep apnea (Chronic) CKD (chronic kidney disease) stage 1, GFR 90 ml/min or greater (Chronic) Type 2 diabetes mellitus (Chronic) Essential hypertension (Chronic) Mixed hyperlipidemia (Chronic) Hospital Course and Treatment Imaging Results: RAD/Chest 1 View (Portable) IMPRESSION: Degenerative changes, as described above. No demonstrated acute cardiopulmonary process.. Left heart cath report: CONCLUSIONS Multivessel CAD. No significant . RECOMMENDATIONS CT surgery consult to discuss revascularization options (CABG vs multivessel PCI) Consults: Cardiology - Pao Operations: None Procedures: Cardiac catheterization Summary of Care Provided: Hospital Course: The patient is a 65 year old M with pmhx of DMt2, HTN, HLD, obesity, who presented to the ER with c/o chest squeezing and SOB with exertion. He was recently found to have an EF 25% per echo with cardiology 08/31. He had nonspecific changes on EKG and elevated troponin. Cardiology was consulted. He was admitted to the PCU for NSTEMI. He was taken for a heart cath the next day and found to have multivessel disease. He was transferred in stable condition to the [facility] for evaluation for CABG vs multivessel PCI. He is asymptomatic and hemodynamically stable at this time. This patient was seen by Mikey Montez PA-C under the supervision of Dr. Davalos.[] Patient Problems: Active and Suspected Problems (Last Reviewed 04/10/20 @ 15:[address] Milka Gross, DO) NSTEMI (non-ST elevated myocardial infarction) (Acute) ROLAND (acute kidney injury) (Acute) Cardiomyopathy (Acute) - Physical Exam Vitals/I&O's: Vital Signs Temp Pulse Resp BP Pulse Ox 97.8 F 74 18 132/81 H 92 04/11/20 10:10 04/11/20 14:25 04/11/20 14:25 04/11/20 14:25 04/11/20 14:25 Oxygen Delivery Method Room Air Weight: 210 lb 9.6 oz Body Mass Index (BMI) 30.2 Intake and Output for Last 24 Hours 04/09/20 04/10/20 04/11/20 23:59 23:59 23:59 Intake Total 577.53 / 777.53 1806.25 / 1806.25 Balance 577.53 / 777.53 1806.25 / 1806.25 General: Alert, Oriented x3, Cooperative HEENT: Atraumatic, PERRLA, EOMI, Normocephalic Neck: Supple, No JVD, Negative Carotid Bruits Lungs: Clear to auscultation, Normal air movement Cardiovascular: Regular rate, No murmurs Abdomen: Bowel Sounds Present, Soft, Non Tender Extremities: No edema, Capillary Refill Less than 3 Seconds Skin: No rashes, No breakdown Musculoskeletal: No Tenderness to Palpation of Joints or Extremities Neurological: Cranial nerves II-XII grossly intact Psych/Mental Status: Normal Affect, Appropriate Microbiology Past 72 Hours 04/10/20 12:35 Mucosa - Nasopharyngeal SARS-CoV-2 Antigen (Rapid) - Final Laboratory Results 04/10/20 12:15: B-Natriuretic Peptide 75.7 04/10/20 15:24: Troponin I 0.753 H* 04/10/20 16:10: POC Glucose 133 H 04/10/20 18:14: POC Glucose 212 H 04/10/20 18:22: Troponin I 0.607 H* 04/10/20 20:11: APTT 114.8 H* 04/10/20 21:23: POC Glucose 163 H 04/10/20 23:48: POC Glucose 127 H 04/11/20 05:02: WBC 10.5, RBC 4.61, Hgb 14.3, Hct 42.7, MCV 92.6, MCH 31.0, MCHC 33.5, RDW Std Deviation 43.8, RDW Coeff of Any 13.0, Plt Count 314, MPV 9.5, Immature Gran % (Auto) 0.400, Neut % (Auto) 46.6 L, Lymph % (Auto) 33.8, [place] % (Auto) 11.7 H, Eos % (Auto) 6.7 H, Baso % (Auto) 0.8, Absolute Neuts (auto) 4.9, Absolute Lymphs (auto) 3.54, Nucleated RBC % 0 04/11/20 05:02: Sodium 138, Potassium 4.4, Chloride 105, Carbon Dioxide 30.0, Anion Gap 3 L, BUN 15, Creatinine 1.29, Estim Creat Clear Calc 60.52, Est GFR (MDRD) Af Amer 72, Est GFR (MDRD) Non-Af 60, BUN/Creatinine Ratio 11.6, Glucose 153 H, Calcium 9.1, Phosphorus 2.9, Magnesium 2.0, Total Bilirubin 0.70, AST 22, ALT 33, Alkaline Phosphatase 58, Total Protein 6.7, Albumin 3.0 L, Globulin 3.7, Albumin/Globulin Ratio 0.8 L, Triglycerides 408 H, Cholesterol 183, LDL Cholesterol TNP, VLDL Cholesterol TNP, HDL Cholesterol 44, TSH 3.03 04/11/20 05:02: Hemoglobin A1c 7.3 H 04/11/20 05:02: APTT 48.8 H 04/11/20 06:50: POC Glucose 158 H 04/11/20 12:36: POC Glucose 167 H Current Medications Acetaminophen (Acetaminophen 325 Mg Tablet) 650 mg PO Q6H PRN PRN PRN Reason: Pain Score 1-10/Temp > 100.7 F Al Hydroxide/Mg Hydroxide (Mag Hydrox/Al Hydrox/Simeth 30 Ml Udc) 30 ml PO Q6H PRN PRN PRN Reason: Gastric Burning Albuterol Sulfate (Albuterol 2.5 Mg/3 Ml Vial.Neb.) 2.5 mg INHALATION Q2H PRN PRN PRN Reason: SOB/Wheezing Albuterol Sulfate (Albuterol 2.5 Mg/3 Ml Vial.Neb.) 2.5 mg INHALATION Q6HWA.RT [facility] Last Admin: 04/11/20 07:21 Dose: 2.5 mg Documented by: Amlodipine Besylate (Amlodipine 10 Mg Tablet) 10 mg PO DAILY [facility] Last Admin: 04/11/20 06:54 Dose: 10 mg Documented by: Aspirin (Aspirin E.C. 81 Mg Tablet) 81 mg PO DAILY@0800 [facility] Last Admin: 04/11/20 06:54 Dose: 81 mg Documented by: Atorvastatin Calcium (Atorvastatin Calcium 20 Mg Tablet) 20 mg PO QHS [facility] Last Admin: 04/10/20 21:26 Dose: 20 mg Documented by: Budesonide (Budesonide Respules 0.5 Mg/2 Ml Ampul.Neb.) 0.5 mg INHALATION Q12H.RT [facility] Last Admin: 04/11/20 07:21 Dose: 0.5 mg Documented by: Cyclobenzaprine HCl (Cyclobenzaprine Hcl 10 Mg Tablet) 10 mg PO TID PRN PRN PRN Reason: muscle spasm Docusate Sodium (Docusate Sodium 100 Mg Capsule) 100 mg PO BID PRN PRN PRN Reason: Constipation Heparin Sodium (Porcine) (Heparin Injection (Vial) 5,000 Unit/Ml Vial) 0 unit IV UD PRN; Protocol PRN Reason: dose adjustment Last Admin: 04/11/20 05:36 Dose: 1,000 unit Documented by: Hydralazine HCl (Hydralazine 20 Mg/Ml Vial) 10 mg IV Q6H PRN PRN PRN Reason: Sbp Greater Than 160 Sodium Chloride () 1,000 mls @ 75 mls/hr IV .[id number] [facility] Last Admin: 04/11/20 12:44 Dose: Not Given Documented by: Insulin Glargine (Insulin Glargine 100 Units/Ml Pen) 20 units SC QHS [facility] Last Admin: 04/10/20 21:28 Dose: Not Given Documented by: Insulin Human Lispro (Insulin Lispro 100 Unit/Ml Insuln.Pen) 8 unit SC Q6 [facility] Last Admin: 04/11/20 12:40 Dose: 8 u Documented by: Insulin Human Lispro (Insulin Lispro 100 Unit/Ml Insuln.Pen) 0 unit SC TIDAC [facility]; Protocol Last Admin: 04/11/20 12:40 Dose: 1 u Documented by: Lisinopril (Lisinopril 40 Mg Tablet) 40 mg PO DAILY [facility] Last Admin: 04/11/20 06:55 Dose: 40 mg Documented by: Melatonin (Melatonin 3 Mg Tablet) 3 mg PO QHS PRN PRN PRN Reason: INSOMNIA Metoprolol Succinate (Metoprolol(Xl)Succ 100 Mg Tablet) 200 mg PO DAILY [facility] Last Admin: 04/11/20 06:55 Dose: 200 mg Documented by: Montelukast Sodium (Montelukast 10 Mg Tablet) 10 mg PO DAILY [facility] Last Admin: 04/11/20 12:40 Dose: 10 mg Documented by: Morphine Sulfate (Morphine 2 Mg/Ml Syringe) 2 mg IV Q3H PRN PRN PRN Reason: Pain Score 6-10 Nitroglycerin (Nitroglycerin (Inpatient Use) 0.4 Mg Tab.Subl) 0.4 mg SUBLINGUAL Q5M PRN PRN Reason: CARDIAC/CHEST PAIN Ondansetron HCl (Ondansetron 4 Mg/2 Ml Vial) 4 mg IV Q8H PRN PRN PRN Reason: NAUSEA/VOMITING Sodium Chloride (0.9% Saline Lock 10 Ml Syringe) 10 - 40 ml IV UD PRN PRN Reason: SALINE FLUSH Tamsulosin HCl (Tamsulosin Hcl 0.4 Mg Capsule) 0.4 mg PO DAILY@1730 [facility] Last Admin: 04/10/20 16:26 Dose: Not Given Documented by: Discharge Diet: - - as directed by receiving facility Discharge Activity: - - as directed by receiving facility Home Medications: Medications to take at Discharge Albuterol Inhaler [Ventolin Hfa] 1 - 2 puff INHALATION Q4H PRN PRN 05/24/13 Simvastatin [Zocor] 40 mg PO QHS 05/24/13 amlodipine 10 mg tablet 10 mg PO DAILY 07/26/19 budesonide-formoterol HFA 160 mcg-4.5 mcg/actuation aerosol inhaler 2 puff INHALATION BID 07/26/19 dulaglutide 0.75 mg/0.5 mL subcutaneous pen injector 0.75 mg SC QWEEK 07/26/19 glipizide 10 mg tablet, extended release 24 hr 10 mg PO DAILY 07/26/19 lisinopril 40 mg tablet 40 mg PO DAILY 07/26/19 metformin 500 mg tablet 1,000 mg PO DAILY tab 07/26/19 sitagliptin 100 mg tablet 100 mg PO DAILY 07/26/19 cholecalciferol (vitamin D3) 125 mcg (5,000 unit) capsule 125 mcg PO DAILY 09/10/19 aspirin 81 mg chewable tablet 81 mg PO DAILY 12/09/19 metoprolol succinate 100 mg tablet,extended release 24 hr 200 mg PO DAILY tab 12/10/19 Hydrochlorothiazide [Hctz] 25 mg PO DAILY 04/10/20 Montelukast Sodium [Singulair] 10 mg PO DAILY 04/10/20 Mv-Min/Folic/Vit K/[id number]/[id number] [Alive Women's 50 Plus Tablet] 1 tab PO DAILY 04/10/20 Naproxen Sodium [Aleve] 220 mg PO DAILY PRN PRN 04/10/20 Primary Care Physician: Aleida Ocampo DO [Primary Care Provider] - Please follow up with your Primary Care Physician in: follow up care as directed by receiving facility Disposition: Acute care Hospital Minutes spent on discharge:: 35 Patient Condition:: Stable Medical Necessity - Tobacco Use Smoking Status: Former smoker - quit 1989 Tobacco Use: Non-smoker Meaningful Use Info Meaningful Use Diagnoses (Choose all that apply): None applicable
--- NOTE | 2020-04-11 16:16 | PCM.CONS.C ---
Reason for Consult Date of Consultation: 04/11/20 Reason for Consultation: CP, NSTEMI History of Present Illness: The patient is a 65 year old M [history of nonischemic cardiomyopathy, nonobstructive coronary artery disease, diabetes, hypertension presenting with retrosternal chest tightness that is exertional. Patient has also noticed worsening of her shortness of breath. Patient was admitted to the PCU and his troponin went up to 0.7. He was evaluated in the PCU and because of his presentation with non-ST elevation TN he underwent coronary angiography which revealed multivessel coronary artery disease. Treatment options were discussed with the patient in detail. I feel that it is reasonable to get a CT surgery opinion to see if patient will be better served with CABG. Patient wanted to be referred to [facility]. His clinical situation was discussed with her nuclear plant equipment operator there who has accepted the patient. He will be transferred to [facility] for further management. Review of systems: All systems reviewed. All else is negative except that in HPI] Past Medical History Allergies/Adverse Reactions: Allergies No Known Allergies Allergy (Verified 04/10/20 11:41) Home Medications: Ambulatory Orders Medication Instructions Recorded Albuterol Inhaler [Ventolin Hfa] 1 - 2 puff INHALATION Q4H PRN PRN 05/24/13 Simvastatin [Zocor] 40 mg PO QHS 05/24/13 amlodipine 10 mg tablet 10 mg PO DAILY 07/26/19 budesonide-formoterol HFA 160 2 puff INHALATION BID 07/26/19 mcg-4.5 mcg/actuation aerosol inhaler dulaglutide 0.75 mg/0.5 mL 0.75 mg SC QWEEK 07/26/19 subcutaneous pen injector glipizide 10 mg tablet, extended 10 mg PO DAILY 07/26/19 release 24 hr lisinopril 40 mg tablet 40 mg PO DAILY 07/26/19 metformin 500 mg tablet 1,000 mg PO DAILY tab 07/26/19 sitagliptin 100 mg tablet 100 mg PO DAILY 07/26/19 cholecalciferol (vitamin D3) 125 125 mcg PO DAILY 09/10/19 mcg (5,000 unit) capsule aspirin 81 mg chewable tablet 81 mg PO DAILY 12/09/19 metoprolol succinate 100 mg 200 mg PO DAILY tab 12/10/19 tablet,extended release 24 hr Hydrochlorothiazide [Hctz] 25 mg PO DAILY 04/10/20 Montelukast Sodium [Singulair] 10 mg PO DAILY 04/10/20 Mv-Min/Folic/Vit K/Lut/Tadd796 1 tab PO DAILY 04/10/20 [Alive Women's 50 Plus Tablet] Naproxen Sodium [Aleve] 220 mg PO DAILY PRN PRN 04/10/20 Past Medical History (Chronic Problems): Chronic Problems (Last Reviewed 04/10/20 @ 15:[address] Milka Gross, DO) BPH (benign prostatic hyperplasia) (Chronic) Dilated cardiomyopathy (Chronic) Atherosclerotic heart disease of [place] coronary artery without angina pectoris (Chronic) Mild disease LAD per cath 06/12/11 Asthma (Chronic) Sleep apnea (Chronic) CKD (chronic kidney disease) stage 1, GFR 90 ml/min or greater (Chronic) Type 2 diabetes mellitus (Chronic) Essential hypertension (Chronic) Mixed hyperlipidemia (Chronic) Surgical History: noncontributory Psychiatric History: No pertinent psych hx - *Family History Sibling Family History: Family History (Last Reviewed 12/09/19 @ 16:06 by Mejia Antony PET CREMATORY WORKER, PET CREMATORY WORKER-C) Father Myocardial infarction Hypertension CVA (cerebral vascular accident) Brother Myocardial infarction CVA (cerebral vascular accident) Mixed hyperlipidemia History Items: Heart Disease Lives: Spouse/ Significant Other Smoking Status: Former smoker - quit 1989 Tobacco Use: Non-smoker Alcohol: Rare Drugs: None Objective: Vital Signs Temp Pulse Resp BP Pulse Ox 97.9 F 78 18 132/83 H 93 04/11/20 15:25 04/11/20 15:25 04/11/20 15:25 04/11/20 15:25 04/11/20 15:25 Oxygen Delivery Method Room Air Weight: 210 lb 9.6 oz Body Mass Index (BMI) 30.2 Intake and Output for Last 24 Hours 04/09/20 04/10/20 04/11/20 23:59 23:59 23:59 Intake Total 577.53 / 777.53 1806.25 / 1806.25 Balance 577.53 / 777.53 1806. / 180.25 General: Awake, Alert, Oriented x 3 HEENT: Atraumatic Neck: Supple Lungs: Clear to auscultation Cardiovascular: Regular Rhythm Abdomen: Soft Extremities: No edema 04/10/20 18:22: Troponin I 0.607 H* 04/10/20 20:11: APTT 114.8 H* 04/11/20 05:02: WBC 10.5, RBC 4.61, Hgb 14.3, Hct 42.7, MCV 92.6, MCH 31.0, MCHC 33.5, Plt Count 314, MPV 9.5, Immature Gran % (Auto) 0.400, Neut % (Auto) 46.6 L, Lymph % (Auto) 33.8, [place] % (Auto) 11.7 H, Eos % (Auto) 6.7 H, Baso % (Auto) 0.8, Absolute Neuts (auto) 4.9, Nucleated RBC % 0 04/11/20 05:02: Sodium 138, Potassium 4.4, Chloride 105, Carbon Dioxide 30.0, Anion Gap 3 L, BUN 15, Creatinine 1.29, Est GFR (MDRD) Af Amer 72, Est GFR (MDRD) Non-Af 60, BUN/Creatinine Ratio 11.6, Glucose 153 H, Calcium 9.1, Phosphorus 2.9, Magnesium 2.0, Total Bilirubin 0.70, Triglycerides 408 H, Cholesterol 183, LDL Cholesterol TNP, VLDL Cholesterol TNP, HDL Cholesterol 44 04/11/20 05:02: Hemoglobin A1c 7.3 H 04/11/20 05:02: APTT 48.8 H Rhythm: EKG: ECHO: Stress Test: Cardiac Cath: PCI: CT Surgery: Holter monitor: EPS: PPM: CXR: Chest CT Scan: Assessment/Plan 1. Non-STEMI: Patient has multivessel coronary artery disease. He is being referred to [facility] for CT surgery evaluation. If he is felt not to be a candidate for surgery he may be a candidate for multivessel PCI.
[2020-04-11 17:11] LABS: Bedside Glucose 164 mg/dL (70-110)
== END 2020-04-11 17:10 | disposition short-term general hospital (02) | DRG 281 ==
LOC: ED 13:45 → PCU 14:18
PROVIDERS: Admitting Provider Internal Medicine; Emergency Provider Emergency Medicine; Visit Provider Internal Medicine
DX: I21.4 Non-ST elevation (NSTEMI) myocardial infarction (principal); I42.0 Dilated cardiomyopathy; I13.0 Hypertensive heart and chronic kidney disease with heart failure and stage 1 through stage 4 chronic kidney disease, or unspecified chronic kidney disease; I50.20 Unspecified systolic (congestive) heart failure; N17.9 Acute kidney failure, unspecified; N40.0 Benign prostatic hyperplasia without lower urinary tract symptoms; I25.10 Atherosclerotic heart disease of native coronary artery without angina pectoris; J45.909 Unspecified asthma, uncomplicated; E11.22 Type 2 diabetes mellitus with diabetic chronic kidney disease; E78.2 Mixed hyperlipidemia; N18.2 Chronic kidney disease, stage 2 (mild); G47.30 Sleep apnea, unspecified; Z79.4 Long term (current) use of insulin; Z79.82 Long term (current) use of aspirin; Z82.3 Family history of stroke; Z82.49 Family history of ischemic heart disease and other diseases of the circulatory system; Z87.891 Personal history of nicotine dependence; Z90.49 Acquired absence of other specified parts of digestive tract; Z95.1 Presence of aortocoronary bypass graft
CPT/HCPCS: 36415; 71045; 80048; 80053; 80061; 82962; 83036; 83735; 83880; 84100; 84443; 84484; 85025; 85379; 85610; 85730; 87426; 93005; 93454; 94640; 99152; 99153; 99285; J7030; Q9967; C1769; C1894